=== PATIENT | male | born 1990 | race African-American/Black ===

== ENCOUNTER 2017-12-31 21:01 | Emergency (ER) | payer SELFPAY ==
[2017-12-31] MEDS ORDERED: Ibuprofen 800 MG TAB ONE (21:22)
[2017-12-31] MEDS ORDERED: AMOXicillin 250 MG CAP ONE (21:22)
== END 2017-12-31 21:25 | disposition home or self-care (01) ==
LOC: NAV ERS 21:01
DX: K03.81 Cracked tooth (principal); I10 Essential (primary) hypertension; G44.209 Tension-type headache, unspecified, not intractable
CPT/HCPCS: 99283